=== PATIENT | female | born 1940 | race Hispanic/Latino ===

== ENCOUNTER 2018-08-10 03:55 | Emergency (ER) | payer OTHER ==
[~2018-08-10 03:55] MED LIST: AMLO10TA7 PO; ASPI-1181 PO; CALC600T12 PO; CHOL100040 PO; COD1CAPS7 PO; DOCU-116 PO; GARL1TAB2 PO; LOSA100T58 PO; METO200T PO; OMEG1CAP6 PO; OMEP20CA10 PO; PRAV40TA3 PO; metamucil PO; triamterene PO
[2018-08-10 05:05] LABS: BASOPHILS % (AUTO) 0.4 % (0.0-5.0); EOSINOPHILS % (AUTO) 2.2 % (0.0-8.0); HEMATOCRIT 34.1 % (36-48); LYMPHOCYTES % (AUTO) 24.6 % (21.0-51.0); MEAN CORPUSCULAR HEMOGLOBIN 31.4 pg (27.0-33.0); MEAN CORPUSCULAR HGB CONC 34.9 g/dL (32.0-36.0); MEAN CORPUSCULAR VOLUME 90.1 fL (79-99); MONOCYTES % (AUTO) 7.6 % (3.0-13.0); NEUTROPHILS % (AUTO) 65.2 % (40.0-77.0); PLATELET COUNT (AUTO) 103 K/uL (130-400); RED BLOOD CELL COUNT(AUTO) 3.79 MIL/uL (4.00-5.50); RED CELL DISTRIBUTION WIDTH 13.4 % (11.0-15.5); WHITE BLOOD COUNT (AUTO) 5.2 K/uL (4.8-10.8)
[2018-08-10] MEDS ORDERED: SODIUM CHLORIDE 0.9% 1000ML 1,000 ML IV ONE (05:06)
[2018-08-10 05:14] LABS: POTASSIUM 3.8 mmol/L (3.5-5.1)
[2018-08-10 05:17] LABS: INR 0.93 (0.85-1.15); PROTHROMBIN TIME 9.8 SEC (9.6-11.6)
[2018-08-10 05:22] LABS: B-TYPE NATRIURETIC PEPTIDE 84 pg/mL (0-100)
[2018-08-10 05:24] LABS: ALBUMIN 3.6 g/dL (3.5-5.0); BILIRUBIN,TOTAL 0.4 mg/dL (0.2-1.0); TOTAL PROTEIN, SERUM 7.1 g/dL (6.0-8.3)
== END 2018-08-10 05:55 | disposition home or self-care (01) ==
LOC: EDH 03:55
DX: I48.0 Paroxysmal atrial fibrillation (principal); R00.2 Palpitations; I10 Essential (primary) hypertension; E78.5 Hyperlipidemia, unspecified; Z90.710 Acquired absence of both cervix and uterus; Z90.49 Acquired absence of other specified parts of digestive tract; Z98.51 Tubal ligation status
CPT/HCPCS: 36415; 71045; 80053; 83880; 84484; 85025; 85610; 85730; 93005 ×2; 99284; J7030